=== PATIENT | female | born 1950 | race African-American/Black ===

== ENCOUNTER 2017-02-19 11:59 | Outpatient (CLI) | payer BC, MEDICARE ==
[2015-05-21 06:35] VITALS: BP 135/65
== END 2017-02-19 12:00 ==
LOC: RT 11:59
PROVIDERS: ATTEND Family Medicine
DX: R00.1 Bradycardia, unspecified (principal)

== ENCOUNTER 2017-06-26 07:34 | Outpatient (CLI) | payer BC, MEDICARE ==
[2015-05-21 06:35] VITALS: BP 135/65
[2017-06-26 07:53] LABS: BASOPHILS % 1.1 (0.0-1.5); EOSINOPHILS % 6.2 % (0.0-6.8); MEAN CORPUSCULAR HEMOGLOBIN 26.8 pg (28.0-34.0); MEAN CORPUSCULAR VOLUME 84.2 fl (80.0-100.0); MONOCYTES % 3.4 % (0.0-11.0); NEUTROPHILS # 2.1 # k/uL (1.4-7.7)
[2017-06-26 08:18] LABS: eGFR (African) > 60; eGFR (Non-African) > 60
== END 2017-06-26 07:35 ==
LOC: LAB 07:34
PROVIDERS: ATTEND Physician Assistant
DX: R10.30 Lower abdominal pain, unspecified (principal)
CPT/HCPCS: 36415; 80048; 85025

== ENCOUNTER 2017-08-18 10:37 | Day surgery (SDC) | payer BC, MEDICARE ==
[2015-05-21 06:35] VITALS: BP 135/65
[~2017-08-18 10:37] MED LIST: LACTATED RINGERS 1,000 ML IV.SOLN IV ONE; PROPOFOL 500 MG/50 ML VIAL IV ONE; SALINE FLUSH 10 ML DISP.SYRIN IVF ONE
--- NOTE | 2017-08-18 13:25 | GI Report ---
REFERRING PHYSICIAN: Dr. Jose Luis Basilio CONDITIONER TUMBLER: Elias Singh MD PROCEDURE MEDICATION: Propofol as per anesthesia. INDICATIONS: Patient is a 67-year-old woman who was referred for surveillance and a follow- up colonoscopy. She has had polyps in the past. She also has had some change in bowel habits with abdominal discomfort. She does have metabolic syndrome with central obesity. She is 4 feet 11 inches and weighs 86 kilograms and carries that centrally. She is on medicine for blood pressure, for lipids, and is referred for the above indications. PROCEDURE PERFORMED: Colonoscopy and polypectomy. PROCEDURE: An Silvercar video colonoscope was advanced through the rectum. In the sigmoid at about 24 cm, she has at least a 1 cm size polyp on a stalk which was removed at the end of the procedure. A very atonic redundant colon. It took some maneuvering to finally reach the base of the cecum. We had to lavage the cecum to clear up a little residual stool. The appendiceal orifice and ileocecal valve appear normal. On slow withdrawal, the cecum, ascending colon, and transverse colon with redundancy but no obvious intraluminal lesions noted. Likewise, the descending colon and sigmoid with redundancy, no obvious intraluminal lesions were noted until you get to 25 cm in the sigmoid and the previously described polyp was removed with snare cautery. She does have a few diverticula. Retroflexion of the rectum was normal. Patient tolerated the procedure well. FINDINGS: 1. Sigmoid polyp, removed. 2. Mild diverticular disease of the sigmoid colon. 3. A very atonic redundant colon. 4. Central obesity. RECOMMENDATIONS: 1. Would increase fiber in the diet, like Benefiber or Metamucil daily. 2. Cut back on white carbohydrates and high caloric carbohydrates. 3. Pending the pathology of the polyp, she needs her colon re-looked at again in 3 to 5 years. cc: Dr. Jose Luis WHIPPLE
== END 2017-08-18 10:40 ==
LOC: OPSURG 10:37
PROVIDERS: ATTEND Internal Medicine Gastroenterology
DX: D12.5 Benign neoplasm of sigmoid colon (principal); K57.30 Diverticulosis of large intestine without perforation or abscess without bleeding; K59.8 Other specified functional intestinal disorders; E66.9 Obesity, unspecified; E88.81 Metabolic syndrome and other insulin resistance
CPT/HCPCS: 88305; J2704; J7120; 45385; S1016